=== PATIENT | female | born 1995 | race Caucasian/White ===

== ENCOUNTER 2017-11-27 13:41 | Inpatient (IN) ==
[2017-12-01] MEDS ORDERED: METHYLERGONOVINE 0.2 MG/ML INJECTION IM PRN (06:15)
[2017-12-01] MEDS ORDERED: OXYTOCIN DRIP 30 UNIT/500 ML ML IV PRN (06:15)
[2017-12-01] MEDS ORDERED: ACETAMINOPHEN 500 MG TABLET PO PRN ×2 (06:15→18:51)
[2017-12-01] MEDS ORDERED: LIDOCAINE 1% (10mg/ml) 2mL INJ PF SDV ID PRN (06:15)
[2017-12-01] MEDS ORDERED: CARBOPROST 250 MCG/ML INJECTION IM PRN (06:15)
[2017-12-01] MEDS ORDERED: CALCIUM CARBONATE Chewable 500mg TABLET PO PRN ×2 (06:15→18:51)
[2017-12-01] MEDS ORDERED: MAG-AL + SIM ORAL LIQUID 30ml PO PRN ×2 (06:15→18:51)
[2017-12-01] MEDS: LR 1,000 ML IV PRN ×2 (06:40→08:50)
[2017-12-01] MEDS: D5LR 1,000 ML IV PRN ×2 (06:49→16:05)
[2017-12-01 07:17] VITALS: BMI 32.8
[2017-12-01] MEDS ORDERED: DiphenhydrAMINE 50 MG/ML INJECTION IVP PRN (10:08)
[2017-12-01] MEDS ORDERED: NALOXONE 0.4 MG/ML INJECTION IVP PRN (10:08)
[2017-12-01] MEDS ORDERED: ROPIVACAINE 1% 10MG/ML INJ 200 MG, SUFentanil 50 MCG in NS 100 ML EPI PRN (10:08)
[2017-12-01] MEDS ORDERED: ONDANSETRON 4 MG/2 ML INJECTION IVP PRN (10:08)
--- NOTE | 2017-12-01 10:08 | Anesthesia Preoperative Report ---
Anesthesia Epidural/Spinal Rec - Date and Time Date: 12/01/17 Procedure: Labor Epidural Plan: Epidural - Vital Signs Vital Signs: Temperature 97.7 F 12/01/17 07:17 Pulse Rate 72 12/01/17 07:17 Respiratory Rate 16 12/01/17 07:17 Blood Pressure 122/70 12/01/17 07:17 Pulse Oximetry 99 12/01/17 07:17 /Para: P:0 - Medictaions & Allergies Inpatient Medications: Current Medications Acetaminophen (Tylenol) 500 - 1,000 mg PO Q4H PRN PRN Reason: Pain Al Hydroxide/Mg Hydroxide (Maalox Plus) 30 ml PO Q3H PRN PRN Reason: Indigestion Calcium Carbonate (Tums) 500 - 1,000 mg PO Q2H PRN PRN Reason: Indigestion Carboprost Tromethamine (Hemabate) 250 mcg IM O PRN PRN Reason: .Downtime Dextrose/Lactated Ringer's (Dextrose 5%-Lactated Ringers) 1,000 mls @ 125 mls/ hr IV .Q8H PRN PRN Reason: Labor Lactated Ringer's (Lactated Ringers) 1,000 mls @ 999 mls/hr IV .Q1H1M PRN Oxytocin (Pitocin Drip) 30 unit in 500 mls @ 2 mls/hr IV .Q24H PRN; Protocol PRN Reason: Induction/Augmentation Lidocaine HCl (Xylocaine-Mpf 1% Vial) 0.2 mg ID O PRN PRN Reason: IV Start Methylergonovine Maleate (Methergine) 0.2 mg IM O PRN Misoprostol (Cytotec) 800 mcg NC ONCE PRN Allergies/Adverse Reactions: Allergies Allergy/AdvReac Type Severity Reaction Status Date / Time No Known Allergies Allergy Verified 09/11/17 14:27 - Home Medications Home Medications: Home Medications Medication Instructions Recorded Confirmed Type Pnv No.95/Ferrous Fum/Folic AC 1 tab PO DAILY 07/05/17 11/16/17 History [ Tablet] Ferrous Sulfate [Iron] 325 mg PO DAILY 09/11/17 11/16/17 History - Medical History Other History: Reports: Now - Surgical History Reproductive Surgery/Treatment: DENIES: Section Anesthesia Reactions: None Hx Family Anesthesia Reaction: No History of Motion Sickness: No - Social History Smoking Status: Former smoker Substance Use Type: does not use Alcohol Intake Frequency: does not drink - Pertinent Findings Lab Data: CBC and BMP 12/01/17 06:42 EKG Rhythm: Normal Sinus Rhythm - Physical Exam Respiratory Exam: lungs clear Cardiovascular Exam: regular rate and rhythm - Airway Assessment Mallampati Score: II TMD: 3 Fingerbreadths Neck Extension: good Overall Assessment: may be difficult intubation - ASA ASA Score: 2 - Discussion Discussion: Discussed risks/options/alternatives of anesthesia and questions answered. Patient consents. Nursing pain assessment noted. Anesthesia Discussion: spouse Attestation Statement: Prior to the delivery of any anesthetic medication, I examined the patient, developed the plan, obtained the patient's consent and discussed the risk and benefits of the procedure with the patient/guardian.
[2017-12-01] MEDS ORDERED: HYDROCORTISONE 2.5% CREAM 30gm RECTALLY PRN (18:51)
[2017-12-01] MEDS ORDERED: HYDROCODONE/APAP 5mg/325mg TABLET PO PRN (18:51)
[2017-12-01] MEDS ORDERED: DiphenhydrAMINE 25 MG CAPSULE PO PRN (18:51)
[2017-12-01] MEDS: OXYTOCIN DRIP 30 UNIT/500 ML ML IV SCH (18:53)
--- NOTE | 2017-12-01 18:59 | Labor and Delivery Note ---
DATE OF DELIVERY: 12/01/2017 DIAGNOSES 1. 22-year-old white female G1, P0 at 40.4 weeks gestational age. 2. Pitocin induction of labor for postdates gestation. 3. Epidural anesthesia. 4. Artificial rupture of membranes. 5. Intrauterine pressure monitor. 6. Spontaneous vaginal delivery. 7. Nuchal cord x 1. 8. Male , Apgars, 3815 g (Onofre Ray), 8 pounds 7 ounces. 9. Second-degree perineal laceration - repaired. BRIEF DESCRIPTION: This is a postdates gestation who was induced today. Cervix was initially 1.5 cm. She got a block and artificial rupture of membranes by Dr. Sierra after that (since I was tied up in surgery). She was 2.5 cm at that time and stayed that way for the next several hours so I placed an IUPM and we titrated the Pitocin dose based on that. Maximum was 26 but we were able to turn it down based on IUPM information. Eventually she made it to complete dilation. We pushed for about an hour and a half with the rolling from OP to OA. Spontaneous vaginal delivery occurred. Infant was bulb suctioned after delivery of the head and then again after delivery of the body. Cord was doubly clamped and cut and the infant's father cut the cord. The cord was allowed to drain for about a minute and a half before cutting. There was a nuchal cord x 1 that was reduced. Examination of the perineum revealed shallow second-degree laceration that was repaired using 2-0 chromic. EBL was 300 mL. At the time of dictation mother and are doing well. [facility]
[2017-12-02] MEDS: IBUPROFEN 800 MG TABLET PO PRN ×2 (00:36→11:43)
[2017-12-02] MEDS: OXYTOCIN DRIP 30 UNIT/500 ML ML IV SCH (01:34)
[2017-12-02 02:29] VITALS: O2SAT 97
--- NOTE | 2017-12-02 08:22 | OB/GYN Progress Note ---
OB-PP Progress Note - General PPD1 - Subjective Date: 12/02/17 Lochia: Moderate Pain: controlled (using Ibuprofen for pain.) Voiding: voiding Nausea or Vomiting Present: No - Objective Vital Signs: Last Vital Signs Temp 97.9 F 12/02/17 06:00 Pulse 80 12/02/17 06:00 Resp 17 12/02/17 06:00 BP 116/25 12/02/17 06:00 Pulse Ox 97 12/02/17 02:15 Urine Output: good General: alert and oriented Abdomen: fundus firm Extremities: non-tender Edema: none Laboratory: Laboratory Results - last 24 hr 12/02/17 06:50 WBC 12.7 H D RBC 3.38 L Hgb 9.3 L D Hct 28.9 L D MCV 85.5 MCH 27.5 MCHC 32.2 RDW Std Deviation 46.9 Plt Count 116 L MPV 11.1 - Assessment Assessment: - Plan Plan: routine care (Considering dismissal.)
[2017-12-02] MEDS ORDERED: DOCUSATE CALCIUM 240 MG CAPSULE PO SCH (09:00)
--- NOTE | 2017-12-02 10:40 | OB/GYN Progress Note ---
OB-Progress Note Free Text - Date Date: 12/02/17 - Progress Note Progress Note: vss af doing ok hgb stable q&a-krb
[2017-12-02 14:24] VITALS: BP 127/68; PULSE 77; RESP 16; TEMP 98
== END 2017-12-02 20:25 | disposition home or self-care (01) | DRG 775 ==
LOC: MC 12-01 06:13
PROVIDERS: ADMIT Obstetrics & Gynecology; ATTEND Obstetrics & Gynecology

== ENCOUNTER 2017-12-10 19:02 | Observation (INO) ==
--- OUTSIDE RECORDS SUMMARY | 2017-12-10 19:28 | External Medical Summary | Continuity of Care Document ---
:1995 Author Organization [facility] Address [address] [place], [place] [address] Phone Care Team Providers Name Role Phone Filiberto Mackey MD Unavailable Unavailable Allergies, Adverse Reactions, Alerts Substance Reaction Severity Status No Known Drug Allergies Unknown Active Medications Medication Instructions Dosage Effective Dates Status Comments (start - stop) ferrous sulfate 325 take 1 tablet by ORAL 325 MG - Active mg (65 mg iron) route every day tablet + DHA 28 mg - Active iron-975 mcg-200 mg oral pack Problems Condition Effective Dates (start - stop) Clinical Status Encntr for suprvsn of normal first - preg, first trimester 13 weeks gestation of - Oth infect w sexl mode of transmiss - comp preg, second tri Encntr for suprvsn of normal first - preg, second trimester 20 weeks gestation of - Encntr for suprvsn of normal first - preg, first trimester 13 weeks gestation of - Encntr for suprvsn of normal first - preg, first trimester 13 weeks gestation of - Encntr for suprvsn of normal first - preg, second trimester 24 weeks gestation of - Encntr for suprvsn of normal first - preg, second trimester 20 weeks gestation of - Encntr for suprvsn of normal first - preg, second trimester 17 weeks gestation of - Encntr for suprvsn of normal first - preg, third trimester 30 weeks gestation of - Encntr for suprvsn of normal first - preg, third trimester 28 weeks gestation of - Procedures Procedure Date Unknown Results Test Name Date and Time Measure Units Reference Range Abnormal Flag Comments Panel Description: Gestational Glucose Tolerance Glucose - Fasting 08:33:00 70 mg/dL 65-94 Glucose - 1 hour 08:33:00 178 mg/dL 65-179 Glucose - 2 hour 08:33:00 146 mg/dL 65-154 Glucose - 3 hour 08:33:00 73 mg/dL 65-139 Note: 08:33:00 Comment For diagnosis of gestational diabetes, at least two values must meetor exceed normal limits, which is based on 100 gm of oral glucosechallenge. Advance Directives Directive Yes / No Effective Date File Name Unknown Encounters Encounter Practice Location Reason(s) Diagnoses Date Provider Care Team Description For Visit Members Purnima [place] Encntr for Sep- Raphael Referring In [facility] [place]. 700 Provider: [employer] [place] [address], first preg, [place], third [address] [address], 700 [id number], [email or web address] [facility] tel:[phone] gestation [id number], [address] [address], [address] of [place]. [place], tel:[phone] [place], [id number]. tel:[phone] Purnima [place] Sep- Raphael In Womens [place]. 700 [facility] [address], [place] Arina [place], [place] [address], [id number], [facility], tel:[phone], [id number] [place]. tel:[phone] Purnima [place] Encntr for Raphael [facility] [place]. 700 Provider: [employer] [place] [address], first preg, Center Raphael [place], third [address], 700 [id number], [email or web address] [facility] tel:[phone] gestation [id number], [place] [address], [address] of [place]. [place], tel:+-[phone] [place], [phone] [id number]. tel:[phone] Associates Daniele Encntr for Raphael Referring In [facility] [place]. 700 Provider: Health [place], [facility] [address], first preg, Center Raphael [place], second [address], 700 [id number], [email or web address] [place], Medical [place] weeks [place], [place] tel:[phone] gestation [id number], [address] [address], [address] of [place]. [place], tel:+-[phone] [place], [phone] [id number]. tel:[phone] Purnima [place] Oth infect Raphael Referring In Womens w sexl mode [place]. 700 Provider: Pearl STEVENSON [facility] [address], [facility] Center Raphael [place], comp preg, [place] [address], 700 [id number], [facility] [place] triEncntr [place], [place] tel:[phone] for suprvsn [phone], [place] [address], [address] of normal [place]. [place], first preg, tel:[phone] [place], second [phone] [id number]. [email or web address] tel:[phone] weeks [phone] gestation of Associates Daniele Encntr for Raphael Referring In [facility] [place]. 700 Provider: Pearl STEVENSON, [facility] [place] [address], first preg, Center Raphael [place], second [address], 700 [id number], [email or web address] [place], Medical [place] weeks [place], Center tel:[phone] gestation [phone], [address] [address], [address] of [place]. [place], tel:[phone] [place], [phone] [id number]. tel:[phone] Purnima [place] Raphael In Womens -2018 [place]. 700 Pearl STEVENSON, Medical [address], Center Arina Phillips [place], [address], [id number], [place], [place], tel:[phone], [id number] [place]. tel:[phone] Purnima [place] Encntr for Jun-18 Raphael Referring In [facility] [place]. 700 Provider: babar Nguyen [facility] [address], first preg, Center [place], second [address], 700 [id number], [email or web address] [place], Medical [place] weeks [place], [place] tel:+ gestation [phone], [place] [address], [address] of [place]. [place], tel:[phone] [place], [phone] [id number]. tel:[phone] Purnima [place] Encntr for May-20 Raphael Referring In [facility] [place]. 700 Provider: babar Nguyen [facility] [address], first [facility], Center [place], first [address], 700 [id number], [email or web address] [place], Medical [place] weeks [place], [place] tel:+ gestation [phone], [address] [address], [address] of [place]. [place], tel:+-[phone] [place], [phone] [id number]. tel:[phone] Purnima [place] Encntr for May-20 [place] Ref[facility] [place]. Provider: babar Nguyen 700 [place] [address], first [facility], [facility] [place], first Center Roly Phillips , [email or web address] [address], Medical [place] weeks Daniele [place] tel: gestation [place], [address] [address], [address] of [id number], [place], [place]. [place], tel:[phone]. [id number] tel:[phone] Purnima [place] Encntr for May-19 Raphael Referring In [facility] [place]. 700 Provider: babar Nguyen [facility] [address], first preg, Center [place], first [address], 700 [id number], [email or web address] [place], Medical [place] weeks [place], [place] tel:+ gestation [phone], [address] [address], [address] of [place]. [place], tel:+-120 [place], [phone] [id number]. tel:[phone] Family History Family Member Diagnosis Age At Onset Maternal Grandmother Uterine Cancer Maternal Grandmother Stroke Immunizations Vaccine Date Status Comments Influenza, injectable, quadrivalent, completed Source: Other Provider preservative free, 3 yrs or older Payers Payer name Insurance type Covered democrat ID Authorization(s) [facility] - [id number] Medicaid Social History Type Description Quantity Date Captured Unknown Vital Signs Date / Height Weight BMI Pulse Blood Temperature Respiratory Body Head BMI Time: Rate Pressure Rate Surface Circumference percentile Area Unknown Chief Complaint And Reason For Visit Unknown Chief Complaint And Reason For Visit Reason For Referral Reason For Referral Unknown Plan Of Care Date Type Action Status Appointment Ana Donnelly BOOKED Future Order: Radiology Order Nuchal Translucency ([id number]) Ordered Future Order: Radiology Order Complete OB Ultrasound > 14 Ordered Weeks ([id number]) Date Type Problem Goal Intervention Status Start Date Unknown. History Of Present Illness Encounter Date Complaint History Of Present Illness This patient has no known history of present illness Functional Status Encounter Date Functional Assessment Cognitive Assessment Unknown Medications Administered Medication Instructions Dosage Effective Dates (start - stop) Status Comments Drug Treatment Unknown Instructions Date Instruction Additional Information Unknown
--- OUTSIDE RECORDS SUMMARY | 2017-12-10 19:28 | External Medical Summary | Continuity of Care Document ---
:1995 Author Organization [facility] Address [address] [place], [place] [address] Phone Care Team Providers Name Role Phone Filiberto Mackey MD Unavailable Unavailable Allergies, Adverse Reactions, Alerts Substance Reaction Severity Status No Known Drug Allergies Unknown Active Medications Medication Instructions Dosage Effective Dates (start - Status Comments stop) + DHA 28 mg - Active iron-975 [...] second trimester 17 weeks gestation of - Procedures Procedure Date OB Visit No Charge Results Test Name Date and Time Measure Units Reference Range Abnormal Flag Comments Unknown Advance Directives Directive Yes / No Effective Date File Name Unknown Encounters Encounter Practice Location Reason(s) Diagnoses Date Provider Care Team Description For Visit Members Purnima [place] Encntr for Raphael Referring In [facility] [place]. 700 Provider: Pearl STEVENSON [facility] [address], first preg, Center [place], second [address], 700 [id number], [email or web address] Daniele [facility] US weeks [place], [place] tel:[phone] gestation [id number], [address] [address], [address] of [place]. [place], tel:[phone] [place], [phone] [id number]. tel:[phone] Purnima [place] Oth infect Raphael [facility] In [facility] [place]. 700 Provider: Pearl STEVENSON [facility] [address], [facility] Rap[place], comp preg, [address], 700 [id number], [facility] [place], [place] tel:[phone] for suprvsn [id number], [address] [address], [address] of normal [place]. [place], first preg, tel:[phone] [place], second [phone] [id number]. [email or web address] tel:[phone] weeks [phone] gestation of Associates Daniele Hortonntr for Raphael Ref[facility] [place]. 700 Provider: Pearl STEVENSON [facility] [address], first preg, Center Raphael [place], second [address], 700 [id number], [email or web address] Daniele [facility] US weeks [place], [place] tel:[phone] gestation [id number], [address] [address], [address] of [place]. [place], tel:[phone] [place], [phone] [id number]. tel:[phone] Purnima [place] Raphael In Women [place]. 700 Pearl STEVENSON Medical [address], Center Arina [place], [address], [id number], [place], [place], tel:[phone], [id number] [place]. tel:[phone] Purnima [place] Encntr for Raphael [facility] In [facility] [place]. 700 Provider: Pearl STEVENSON normal [facility] [address], first [facility], Center Raphael [place], second [address], 700 [id number], [email or web address] [place], Medical [place] weeks [place], [place] tel:+ gestation [phone], [address] [address], [address] of [place]. [place], tel:+-316 [place], [phone] [id number]. tel:[phone] Purnima [place] Encntr for May- Raphael Referring In Womens [facility] [place]. 700 Provider: Pearl STEVENSON normal [facility] [address], first preg, Center [place], first [address], 700 [id number], [email or web address] [facility] US weeks [place], [place] tel:+ gestation [phone], [address] [address], [address] of [place]. [place], tel:+-316 [place], [phone] [id number]. tel:[phone] Purnima [place] Encntr for May- Persaud Referring In [facility]ens [facility] [place]. Provider: babar Nguyen 700 [place] [address], first [facility], Arina eLyva [place], first [address] , [place] [address], Medical [place] [facility] tel:+ gestation [place], [address] [address], [address] of [id number], [place], [place]. [place], tel:[phone]. [id number] tel:[phone] Purnima [place] Encntr for May-19 Raphael Referring In Womens [facility] [place]. 700 Provider: Pearl STEVENSON normal Medical [place] [address], first preg, Center Rap[place], first [address], 700 [id number], [email or web address] [place], [facility] US weeks [facility] tel:[phone] gestation [id number], [place] [address], [address] of [place]. [place], tel:+-316 [place], [phone] [id number]. tel:[phone] Family History Family Member Diagnosis Age At Onset Maternal Grandmother Uterine Cancer Maternal Grandmother Stroke Immunizations Vaccine Date Status Comments Influenza, injectable, quadrivalent, completed Source: Other Provider preservative free, 3 yrs or older Payers Payer name Insurance type Covered alliance party ID Authorization(s) [facility] - [id number] Medicaid Social History Type Description Quantity Date Captured Alcohol Use Details No Caffeine Use Details Unknown Tobacco Use Status Unknown Smoking Status Never smoker Vital Signs Date / Height Weight BMI Pulse Blood Temperature Respiratory Body Head BMI Time: Rate Pressure Rate Surface Circumference percentile Area 154.00 25.4 108/ lbs 7 mm[Hg] 9:47 kg/m AM eter (2) Chief Complaint And Reason For Visit Unknown Chief Complaint And Reason For Visit Reason For Referral Reason For Referral Unknown Plan Of Care Date Type Action Status Appointment Ana Donnelly BOOKED Future Order: Radiology Order Nuchal Translucency ([id number]) Ordered Future Order: Radiology Order Complete OB Ultrasound > 14 Ordered Weeks ([id number]) Date Type Problem Goal Intervention Status Start [...]
--- OUTSIDE RECORDS SUMMARY | 2017-12-10 19:28 | External Medical Summary | Continuity of Care Document ---
:1995 Author Organization [facility] Address [address] [place], [place] [address] Phone Care Team Providers Name Role Phone [...] of normal first - preg, third trimester 37 weeks gestation of - Active Procedures Procedure Date OB Visit No Charge Results Test Name Date and Time Measure Units Reference Range Abnormal Flag Comments Unknown Advance Directives Directive Yes / No Effective Date File Name Unknown Encounters Encounter Practice Location Reason(s) Diagnoses Date Provider Care Team Description For Visit Members Associates Liam [place] Encntr for Raphael [facility] suprvsn of [place]. 700 Provider: LADONNA STEVENSON Medical [place] [address], first [facility], Center Rap[place], third [address], 700 Medical [id number], [place] [email or web address] [place] [address] tel:[phone] weeks [place], [place] [address], 67[address] gestation [id number], [place], of [place]. [id number]. tel: tel: [phone] Associates Liam [place] Raphael [facility] -2017 [place]. 700 Provider: [place], [facility] [address], Center Raphael [place], [address], 700 Medical [id number], [place] Daniele [place] tel:[phone] [place], [address] [address], 6790 [id number], [place], [place]. [id number]. tel: tel: [phone] Associates In [place] [address] [place]. 700 [place] [facility] [address], [place] Ar[place], [address] [address], [id number], [place], tel:[phone] [place], 6790 [id number], [place]. tel:[phone] Associates In [place] [address] [place]. 700 [place] [facility] [address], [place] Arnia [place], [address] [address], [id number], [place] Dan[place], tel:[phone] [place], 67[id number], [place]. tel:[phone] Associates In Daniele [facility] [place]. 700 Provider: [place] [facility] [address], [place]hael [place], [address], 700 Medical [id number], [place] Daniele [place] tel:[phone] [place], [address] [address], 67[address] [id number], [place], [place]. [id number]. tel: tel: [phone] Family History Family Member Diagnosis Age At Onset Maternal Grandmother Uterine Cancer Maternal Grandmother Stroke Immunizations Vaccine Date Status Comments Tdap completed Source: New Immunization Record Influenza, injectable, completed Source: Other Provider quadrivalent, preservative free, 3 yrs or older Payers Payer name Insurance type Covered green party ID Authorization(s) [facility] - [id number] Medicaid [facility] [id number] Medicaid Social History Type Description Quantity Date Captured Alcohol Use Details No Caffeine Use Details Unknown Tobacco Use Status Unknown Smoking Status Never smoker Vital Signs Date / Height Weight BMI Pulse Blood Temperature Respiratory Body Head BMI Time: Rate Pressure Rate Surface Circumference percentile Area 177.70 29.3 131/80 -2018 lbs 9 mm[Hg] 11:09 kg/m AM eter (2) Chief Complaint And Reason For Visit Unknown Chief Complaint And Reason For Visit Reason For Referral Reason For Referral Unknown Plan Of Care Date Type Action Status Unknown. Date Type Problem Goal Intervention Status Start [...]
--- OUTSIDE RECORDS SUMMARY | 2017-12-10 19:28 | External Medical Summary | Continuity of Care Document ---
:1995 Author Organization [facility] Address [address] [place], [place] [id number] Phone Care Team Providers Name Role Phone [...] third trimester 28 weeks gestation of - Encntr for suprvsn of normal first - preg, third trimester 33 weeks gestation of - Encntr for suprvsn of normal first - preg, third trimester 32 weeks gestation of - Procedures Procedure Date OB Visit No Charge Results Test Name Date and Time Measure Units Reference Range Abnormal Flag Comments Unknown Advance Directives Directive Yes / No Effective Date File Name Unknown Encounters Encounter Practice Location Reason(s) Diagnoses Date Provider Care Team Description For Visit Members Purnima [place] [facility]cntr [facility]hael [facility] [place] 700 Provider: babar Nguyen Medical [place] [address], first preg, [place], third [place], 700 [id number], [email or web address] [facility] tel:[phone] gestation [id number], [place], [address] of . [place], tel:[phone] [place], [phone] [id number]. tel:[phone] Purnima [place] Encntr for Raphael [facility] [place]. 700 Provider: babar Nguyen [facility] [place] [address], first [facility], [place], third [place], 700 [id number], [email or web address] [facility] tel:[phone] gestation [id number], [place], [address] of [place]. [place], tel:[phone] [place], [phone] [id number]. tel:[phone] Purnima [place] Encntr for Raphael [facility] [place]. 700 Provider: Pearl STEVENSON normal Medical [place] [address], first preg, Center [place], third [place], 700 [id number], [email or web address] [facility] tel:[phone] gestation [id number], [place], [address] of [place]. [place], tel:+-316 [place], [phone] [id number]. tel:[phone] Purnima [place] Raphael In Womens -2017 [place]. 700 Health [facility] Medical [address], Center Arina [place], [place], [id number], [place], tel:[phone], [address] [place]. tel:[phone] Purnima [place] Encntr for Raphael Referring In Womens suprvsn [place]. 700 Provider: [facility], [facility] [address], first preg, Center [place], third [place], 700 [id number], [email or web address] [facility] [place], [place] tel:[phone] gestation [id number], [place], [address] of [place]. [place], tel:[phone] [place], [phone] [id number]. tel:[phone] Purnima [place] Encntr for Raphael Referring In Womens suprn [place]. 700 Provider: [facility], [facility] [address], first preg, Center [place], second [place], 700 [id number], [email or web address] [facility] weeks [place], [place] tel:[phone] gestation [id number], [place], [address] of [place]. [place], tel:[phone] [place], [phone] [id number]. tel:[phone] Purnima [place] Oth infect Raphael Referring In Womens w sexl mode [place]. 700 Provider: [facility], [facility] [address], [facility] Center [place], comp preg, [place], 700 [id number], second [facility] triEncntr [place], [place] tel:[phone] for suprvsn [id number], [place], [address] of normal [place]. [place], first preg, tel:[phone] [place], second [phone] [id number]. [email or web address] tel:[phone] weeks [phone] gestation of Associates Daniele Encntr for Raphael Referring In Womens Ultrasound suprvsn [place]. 700 Provider: Pearl STEVENSON normal Medical [place] [address], first preg, Center [place], second [place], 700 [id number], [email or web address] Daniele, [facility] US weeks [place], [place] tel:[phone] gestation [id number], [place], [address] of [place]. [place], tel:[phone] [place], [phone] [id number]. tel:[phone] Purnima [place] Jun- Raphael In Womens -2017 [place]. 700 Pearl STEVENSON Medical [address], Center [place], [place], [id number], [place], [facility], tel:[phone], [address] [place]. tel:[phone] Purnima [place] Encntr for Raphael Referring In Womens suprvsn [place]. 700 Provider: babar Nguyen Medical [place] [address], first preg, Center [place], second [place], 700 [id number], [email or web address] [place], [facility] US weeks [place], [place] tel:[phone] gestation [id number], [place], [address] of [place]. [place], tel:+-316 [place], [phone] [id number]. tel:[phone] Purnima [place] Encntr for May- Raphael Referring In Womens suprvsn [place]. 700 Provider: babar Nguyen Medical [place] [address], first preg, Center [place], first [place], 700 [id number], [email or web address] [place], Medical [place] weeks [place], [place] tel:[phone] gestation [id number], [place], [address] of [place]. [place], tel:+-316 [place], [phone] [id number]. tel:[phone] Associates Daniele Encntr for May-20 [place] Referring In Womens Ultrasound suprvsn of [place]. Provider: babar Nguyen 700 [place] [address], first preg, [place], first Center , 700 [id number], [email or web address] [place], Medical [place] weeks [place], [place] tel:+21 gestation [place], [place], [address] of [id number], [place], [place]. [place], tel:[phone]. [id number] tel:[phone] Associates Daniele Encntr for Raphael Referring In Womens suprvsn [place]. 700 Provider: [facility] [place] [address], first [facility], Center [place], [place], first [place], 700 [id number], [place], Medical [place] weeks [place], [place] tel:+21 gestation [id number], [place], [address] of [place]. [place], tel:+316 [place], [id number]. tel:[phone] Family History Family Member Diagnosis Age At Onset Maternal Grandmother Uterine Cancer Maternal Grandmother Stroke Immunizations Vaccine Date Status Comments Influenza, injectable, quadrivalent, completed Source: Other Provider preservative free, 3 yrs or older Payers Payer name Insurance type Covered democrat ID Authorization(s) [facility] - [id number] Medicaid Social History Type Description Quantity Date Captured Alcohol Use Details No Caffeine Use Details Unknown Tobacco Use Status Unknown Smoking Status Never smoker Vital Signs Date / Height Weight BMI Pulse Blood Temperature Respiratory Body Head BMI Time: Rate Pressure Rate Surface Circumference percentile Area 163.60 27.0 127/74 -2018 lbs 5 mm[Hg] 8:37 kg/m AM eter (2) Chief Complaint And Reason For Visit Unknown Chief Complaint And Reason For Visit Reason For Referral Reason For Referral Unknown Plan Of Care Date Type Action Status Appointment Aan Donnelly BOOKED Future Order: Radiology Order Nuchal Translucency ([id number]) Ordered Future Order: Radiology Order Complete OB Ultrasound > 14 Ordered Weeks ([id number]) Date Type Problem Goal Intervention Status Start [...]
--- OUTSIDE RECORDS SUMMARY | 2017-12-10 19:28 | External Medical Summary | Continuity of Care Document ---
:1996 Author Organization [facility] Address [address] [place], [place] [id number] Phone Care Team Providers Name Role Phone [...] of normal first - preg, third trimester 38 weeks gestation of - Active Procedures Procedure Date OB Visit No Charge Results Test Name Date and Time Measure Units Reference Range Abnormal Flag Comments Unknown Advance Directives Directive Yes / No Effective Date File Name Unknown Encounters Encounter Practice Location Reason(s) Diagnoses Date Provider Care Team Description For Visit Members Associates Liam [place] Encntr for Raphael [facility] suprvsn of [place]. 700 Provider: LADONNA STEVENSON Medical [place] [address], first [facility], Center [place], third [place], 700 Medical [id number], [place] [email or web address] [place] [address] tel:[phone] weeks [place], [place], 6790 gestation [id number], [place], of [place]. [id number]. tel: tel: [phone] Associates Liam [place] Raphael [facility] -2017 [place]. 700 Provider: [place], [facility] 1522, Center [place], [place], 700 Medical [id number], [place] Dan[place] tel:[phone] [place], [place], 6790 [id number], [place], [place]. [id number]. tel: tel: [phone] Associates In [place] [address] [place]. 700 [place] [facility] 1522, [place] Arina [place], [place], [id number], [place], tel:[phone] [place], 6790 [id number], [place]. tel:[phone] [facility] [place] [address] [place]. 700 [place] [facility] 1522, [place] Arina [place], [place], [id number], [place] Daniele, tel:[phone] [place], 6790 [id number], [place]. tel:[phone] Associates [facility] Dan[place] [facility]2016 [place]. 700 Provider: [place] [id number], [place], [place], 700 Medical [id number], [place] Dan[place] tel:[phone] [place], [place], 6790 [id number], [place], [place]. [id number]. tel: tel: [phone] Family History Family Member Diagnosis Age At Onset Maternal Grandmother Uterine Cancer Maternal Grandmother Stroke Immunizations Vaccine Date Status Comments Tdap completed Source: New Immunization Record Influenza, injectable, completed Source: Other Provider quadrivalent, preservative free, 3 yrs or older Payers Payer name Insurance type Covered alliance party ID Authorization(s) [facility] - [id number] Medicaid [facility] [id number] Medicaid Social History Type Description Quantity Date Captured Alcohol Use Details No Caffeine Use Details Unknown Tobacco Use Status Unknown Smoking Status Never smoker Vital Signs Date / Height Weight BMI Pulse Blood Temperature Respiratory Body Head BMI Time: Rate Pressure Rate Surface Circumference percentile Area 177.40 29.3 79 lbs 4 mm[Hg] 8:41 kg/m AM francoiser (2) Chief Complaint And Reason For Visit Unknown Chief Complaint And Reason For Visit Reason For Referral Reason For Referral Unknown Plan Of Care Date Type Action Status Appointment Ana Dan BOOKED Date Type Problem Goal Intervention Status Start [...]
--- OUTSIDE RECORDS SUMMARY | 2017-12-10 19:28 | External Medical Summary | Continuity of Care Document ---
:1995 Author Organization [facility] Address [address] [place], [place] [phone] Phone Care Team Providers Name Role Phone [...] first trimester 13 weeks gestation of - Uterine size-date discrepancy, third - trimester Abnormal hematolog finding on - screening of mother 36 weeks gestation of - Uterine size-date discrepancy, third - trimester 34 weeks gestation of - Oth infect w [...] third trimester 37 weeks gestation of - Encntr for suprvsn of normal first - preg, third trimester 30 weeks gestation of - Encntr for suprvsn of normal first - preg, third trimester 28 weeks gestation of - Encntr for suprvsn of normal first - preg, third trimester Encounter For Screening For - Streptococcus B 36 weeks gestation of - Encntr for suprvsn of normal first - preg, third trimester 33 weeks gestation of - Encntr for suprvsn of normal first - preg, third trimester 32 weeks gestation of - Encntr for suprvsn of normal first - preg, third trimester 38 weeks gestation of - Procedures Procedure Date Unknown Results Test Name Date and Time Measure Units Reference Range Abnormal Flag Comments Unknown Advance Directives Directive Yes / No Effective Date File Name Unknown Encounters Encounter Practice Location Reason(s) Diagnoses Date Provider Care Team Description For Visit Members Purnima [place] Encntr for Cristo-1 Raphael Referring In Womens suprvsn of normal 4-201 [place]. 700 Provider: Health [place], first preg, third 8 Medical [place] PO Box weeks [place] Raphael R, 1522, gestation of [place] 700 [place], 120, [facility] [id number], [place], [facility] 120, [id number] Daniele, tel: , [place]. [place], [id number] tel: [phone]. [id number] tel:[phone] Purnima [place] Encntr for Cristo-0 Raphael Referring In Womens suprvsn of normal 7-201 [place]. 700 Provider: Health [place], first preg, third 8 Medical [place] [address] [email or web address] weeks Center Raphael R, 1522, gestation of [place], 120, Medical Daniele [facility] [place] [id number], [place], [place], [place] [id number] Daniele, tel:+ , [place]. [place], tel: [phone]. [id number] tel:[phone] Purnima [place] Encntr for October-3 Raphael Referring In Womens suprvsn of normal - [place]. 700 Provider: Health [place], first preg, third 8 Medical [facility] Box trimesterEncounte Center Raphael R, 1522, r For [place], Screening For 120, Medical [place], Streptococcus B36 Daniele [place] [id number], weeks gestation [place], [place], [place] of [id number] Daniele, tel:+ , [place]. [place], tel: [phone]. [id number] tel:[phone] Purnima [place] Uterine size-date October-3 Raphael Referring In Womens Ultrasound discrepancy, [place]. 700 Provider: Health [place], third 8 Medical [facility] Box trimesterAbnormal Center Raphael R, 1522, hematolog finding [place], on 120, Medical [place], screening of Daniele [place] [id number], [email or web address] weeks [place], [place], [place] gestation of [id number] Daniele, tel:+ , [place]. [place], tel: [phone]. [id number] tel:[phone] Purnima [place] May-2 Raphael In Womens - [place]. 700 Health [place], 8 Medical PO Box Center [address]22, [place], 120, [place], Daniele, [id number], [place], [place] [id number] tel: , [place]. tel: [phone] Purnima [place] Uterine size-date October-1 Raphael Referring In Womens discrepancy, [place]. 700 Provider: Pearl STEVENSON, third [email or web address] 8 Medical [facility] Box weeks gestation Center Raphael R, 1522, of [place], 120, Medical Daniele [facility] [place] [id number], [place], [facility] 120, [place] [id number] Daniele, tel: , [place]. [place], tel: [phone]. [id number] tel:[phone] Purnima [place] Encntr for May-0 Raphael Referring In Womens suprvsn of normal 7-201 [place]. 700 Provider: Health [place], first preg, third 8 Medical [place] [address] [email or web address] weeks Center Raphael Patel, 1522, gestation of [place], 120, Medical [facility]iele [facility] [id number], [place], [facility] 120, [place] [id number] Dan[place], tel: , [place]. [place], tel: [phone]. [id number] tel:[phone] Purnima [place] Encntr for May-0 Raphael Referring In Womens suprvsn of normal 3-201 [place]. 700 Provider: Health [place], first preg, third 8 Medical [place] [address] [email or web address] weeks Center Raphael Patel, 1522, gestation of [place], 120, Medical [facility]iele [facility] [id number], [place], [facility] 120, [place] [id number] Daniele, tel: , [place]. [place], tel: [phone]. [id number] tel:[phone] Purnima [place] Encntr for Apr-1 Raphael Referring In Womens suprvsn of normal 9-201 [place]. 700 Provider: Health [place], first preg, third 8 Medical [place] PO Box weeks Center Raphael Patel, 1522, gestation of [place], 120, Medical Daniele [facility] [id number], [place], [facility] 120, [place] [id number] Daniele, tel: , [place]. [place], tel: [phone]. [id number] tel:[phone] Purnima [place] Apr-0 Raphael In Womens 6-201 [place]. 700 Health [place], 8 Medical PO Box Center 1522, [place], 120, Daniele [facility] [id number], [place], [place] [id number] tel: , [place]. tel: [phone] Purnima [place] Encntr for Apr-0 Raphael Referring In Womens suprvsn of normal 5-201 [place]. 700 Provider: Pearl STEVENSON, first preg, third 8 Medical [place] [address] [email or web address] weeks Center Raphael R, 1522, gestation of [place], 120, Medical Daniele [facility] [id number], [place], [place], [place] [id number] Daniele, tel: , [place]. [place], tel: [phone]. [id number] tel:[phone] Purnima [place] Encntr for Mar-0 Raphael Referring In Womens suprvsn of normal 8-201 [place]. 700 Provider: Pearl STEVENSON, first preg, 8 Medical [place] PO Box second Center Raphael R, 1522, [email or web address] weeks [place], gestation of 120, Medical [place], [facility] [id number], [place], [place] 120, [place] [id number] Daniele, tel: , [place]. [place], tel: [phone]. [id number] tel:[phone] Purnima [place] Oth infect w sexl Feb-0 Raphael Referring In Womens mode of transmiss 8-201 [place]. 700 Provider: Pearl STEVENSON, comp preg, second 8 Medical [place] PO Box triEncntr for Center Raphael R, 1522, suprvsn of normal [place], first preg, 120, Medical [place], second [facility] [id number], [email or web address] weeks [place], [place], [place] gestation of [id number] Daniele, tel: , [place]. [place], tel: [phone]. [id number] tel:[phone] Purnima [place] Encntr for Feb-0 Raphael Referring In Womens Ultrasound suprvsn of normal 8-201 [place]. 700 Provider: Pearl STEVENSON, first preg, 8 Medical [place] PO Box second Center Raphael R, 1522, weeks [place], gestation of 120, Medical [place], [place], [place] [id number], [place], [place] 120, [place] [id number] Daniele, tel: , [place]. [place], tel: [phone]. [id number] tel:[phone] Purnima [place] Darrius-2 Raphael In Womens 4-201 [place]. 700 Health [place], 8 Medical PO Box Center 1522, [place], 120, [place], Daniele, [id number], [place], [place] [id number] tel: , [place]. tel: [phone] Purnima Hortonntr for Darrius-1 Raphael Referring In Womens suprvsn of normal 8-201 [place]. 700 Provider: Health [place], first preg, 8 Medical [place] PO Box second Center Raphael R, 1522, [email or web address] weeks [place], gestation of 120, Medical [place], [place], [place] , [place], [facility] 120, [place] [id number] Daniele, tel: , [place]. [place], tel: [phone]. [id number] tel:[phone] Purnima Hortonntr for Dec-2 Raphael Referring In Womens suprvsn of normal 0-201 [place]. 700 Provider: Health [place], first preg, first 7 Medical [place] PO Box [email or web address] weeks Center Raphael R, 1522, gestation of [place], 120, Medical [place], [place], [place] [id number], [place], [facility] 120, [place] [id number] Daniele, tel: , [place]. [place], tel: [phone]. [id number] tel:[phone] Purnima [place] Encntr for Dec-2 [place]aud Referring In Womens Ultrasound suprvsn of normal 0-201 [place]. Provider: Health [place], first preg, first [address] [place] [address] [address] [email or web address] weeks Medical Raphael R, 1522, gestation of Center [place], , [facility], 120, Center [id number], Daniele, [facility] 120, [place] Daniele [facility], tel: [phone] [place], , [place]. [id number]. tel: tel: [phone] Purnima Hortonntfiliberto for Dec-1 Raphael Referring In Womens suprvsn of normal 9-201 [place]. Roly Provider: Health [place], first preg, first 7 Medical [place] [address] [email or web address] weeks Center Raphael R, 1522, gestation of [place] 700 [place], 120, Medical [place], [facility] [id number], [place], [facility] 120, [place] [id number] Daniele, tel: , [place]. [place], [id number] tel: [phone]. [id number] tel:[phone] Family History Family Member Diagnosis Age At Onset Maternal Grandmother Uterine Cancer Maternal Grandmother Stroke Immunizations Vaccine Date Status Comments Tdap completed Source: New Immunization Record Influenza, injectable, completed Source: Other Provider quadrivalent, preservative free, 3 yrs or older Payers Payer name Insurance type Covered green party ID Authorization(s) [facility] - [id number] Medicaid [employer] [place] [id number] Medicaid Social History Type Description Quantity Date Captured Unknown Vital Signs Date / Height Weight BMI Pulse Blood Temperature Respiratory Body Head BMI Time: Rate Pressure Rate Surface Circumference percentile Area Unknown Chief Complaint And Reason For Visit Unknown Chief Complaint And Reason For Visit Reason For Referral Reason For Referral Unknown Plan Of Care Date Type Action Status Appointment Ana Dan BOOKED Future Order: Radiology Order Ultrasound OB Follow-up ([id number]) Ordered Future Order: Radiology Order Nuchal Translucency ([id number]) Ordered Future Order: Radiology Order Complete OB Ultrasound > 14 Ordered Weeks ([id number]) Date Type Problem Goal Intervention Status Start [...]
--- OUTSIDE RECORDS SUMMARY | 2017-12-10 19:28 | External Medical Summary | Continuity of Care Document ---
:[address] [facility] Address [address] [place], [place] [id number] Phone Care Team Providers Name Role Phone [...] Care Team Description For Visit Members Purnima Banda infect Raphael Referring In Womens w sexl mode -2017 [place]. 700 Provider: Health [place], Medical [place] [address], [facility] Center Raphael [place], [place], comp preg, [place], 700 [id number], [facility] [place], [place] tel:[phone] for suprvsn [id number], [place], [address] of normal [place]. [place], first preg, tel:[phone] [place], second [phone] [id number]. [email or web address] tel:[phone] weeks [phone] gestation of Associates Daniele Encntr for Raphael Referring In W[facility]ens [facility] [place]. 700 Provider: Pearl STEVENSON, normal Medical [place] [address], first preg, Center Rap[place], second [place], 700 [id number], [email or web address] [facility] [place], [place] tel:[phone] gestation [id number], [place], [address] of [place]. [place], tel:[phone] [place], [id number]. tel:[phone] Purnima [place] Jun-30 Raphael In Womens -2017 [place]. 700 Health [place], Medical [address], Center Arina [place], [place], [id number], [facility] [place], tel:[phone], [address] [place]. tel:[phone] Purnima [place] Jun- Raphael In Womens -2017 [place]. 700 Health [place], Medical [address], Center Arina [place], [place], [id number], [facility] [place], tel:[phone], [id number] [place]. tel:[phone] Purnima [place] Encntr for Jun- Raphael Referring In Womens [facility] [place]. 700 Provider: Pearl STEVENSON, normal Medical [place] [address], first preg, Center Rap[place], second [place], 700 [id number], [email or web address] [facility] weeks [place], [place] tel:[phone] gestation [id number], [place], [address] of [place]. [place], tel:[phone] [place], [id number]. tel:[phone] Purnima [place] Encntr for Dec-20 Raphael Referring In Womens [facility] [place]. 700 Provider: babar Nguyen [facility] [address], first preg, [place], first [place], 700 [id number], [email or web address] [place], Medical [place] weeks [place], [place] tel:[phone] gestation [id number], [place], [address] of [place]. [place], tel:[phone] [place], [phone] [id number]. tel:[phone] Purnima [place] Encntr for Dec-20 [place]aud Referring In Womens Ultrasound [facility] [place]. Provider: babar Nguyen 700 [place] [address], first preg, [facility] [place], first Center , 700 [id number], [place], Medical [place] weeks [facility] tel:[phone] gestation [place], [place], [address] of [id number], [place], [place]. [place], tel:[phone]. [id number] tel:[phone] Purnima [place] Encntr for May-19 Raphael Referring In Womens [facility] [place]. 700 Provider: babar Nguyen [facility] [address], first preg, Center [place], first [place] [address], 700 [id number], [email or web address] [place], Medical [place] weeks [place], [place] tel:[phone] gestation [id number], [place], [address] of [place]. [place], tel:[phone] [place], [phone] [id number]. tel:[phone] Family History Family Member Diagnosis Age At Onset Maternal Grandmother Uterine Cancer Maternal Grandmother Stroke Immunizations Vaccine Date Status Comments Influenza, injectable, quadrivalent, completed Source: Other Provider preservative free, 3 yrs or older Payers Payer name Insurance type Covered alliance party ID Authorization(s) [facility] - [id number] Medicaid Social History Type Description Quantity Date [...] BOOKED Future Order: Radiology Order Nuchal Translucency ([id number]) Ordered Future Order: Radiology Order Complete OB Ultrasound > 14 Ordered Weeks ([id number]) Date Type Problem Goal Intervention Status Start [...]
--- OUTSIDE RECORDS SUMMARY | 2017-12-10 19:29 | External Medical Summary | Continuity of Care Document ---
:1995 Author Organization [facility] Address [address] [place], [place] [id number] Phone Care Team Providers Name Role Phone [...] Health [place], Medical [place] [address], [facility] Center Raphael [place], comp preg, [place], 700 [id number], second [facility] [place], [place] tel:[phone] for suprvsn [id number], [place], [address] of normal [place]. [place], first preg, tel:[phone] [place], second [phone] [id number]. [email or web address] tel:[phone] weeks [phone] gestation of Associates Daniele Encntr for Raphael Referring In [facility]ens [facility] [place]. 700 Provider: Pearl STEVENSON, normal Medical [place] [address], first preg, Center Rap[place], second [place] [address], 700 [id number], [email or web address] [facility] weeks [place], [place] tel:[phone] gestation [id number], [place], [address] of [place]. [place], tel:+[phone] [place], [phone] [id number]. tel:[phone] Associates Daniele Jun- Raphael In Womens -2017 [place]. 700 Health [place], Medical [address], Center [place], [place], [id number], [facility] [place], tel:[phone], [address] [place]. tel:[phone] Purnima [place] Jun- Raphael In Womens -2017 [place]. 700 Health [place], Medical [address], Center Arina [place], [place], [id number], [facility] [place], tel:[phone], [address] [place]. tel:[phone] Purnima [place] Encntr for Raphael Referring In Womens [facility] [place]. 700 Provider: Pearl STEVENSON, normal Medical [place] [address], first preg, Center Raphael [place], second [place] [address], 700 [id number], [email or web address] [facility] weeks [place], [place] tel:[phone] gestation [id number], [place], [address] of [place]. [place], tel:[phone] [place], [phone] [id number]. tel:[phone] Purnima [place] Encntr for Dec-20 Raphael Referring In Womens [facility] [place]. 700 Provider: babar Nguyen [facility] [address], first preg, Center [place], first [place], 700 [id number], [email or web address] [place], Medical [place] weeks [place], [place] tel:[phone] gestation [id number], [place], [address] of [place]. [place], tel:+[phone] [place], [phone] [id number]. tel:[phone] Purnima [place] Encntr for Dec-20 [place]aud Referring In Womens Ultrasound [facility] [place]. Provider: babar Nguyen 700 [place] [address], first preg, [facility] [place], first Center , 700 [id number], [email or web address] [place], Medical [place] weeks [facility] tel:[phone] gestation [place], [place], [address] of [id number], [place], [place]. [place], tel:[phone]. [id number] tel:[phone] Purnima [place] Encntr for May-19 Raphael Referring In Womens [facility] [place]. 700 Provider: babar Nguyen [facility] [address], first preg, Center [place]hael [place], first [place] [address], 700 [id number], [email or web address] [place], Medical [place] weeks [place], [place] tel:[phone] gestation [id number], [place], [address] of [place]. [place], tel:[phone] [place], [phone] [id number]. tel:[phone] Family History Family Member Diagnosis Age At Onset Maternal Grandmother Uterine Cancer Maternal Grandmother Stroke Immunizations Vaccine Date Status Comments Influenza, injectable, quadrivalent, completed Source: Other Provider preservative free, 3 yrs or older Payers Payer name Insurance type Covered libertarian ID Authorization(s) [facility] - [id number] Medicaid Social History Type Description Quantity Date [...] BOOKED Future Order: Radiology Order Nuchal Translucency ([id number]) Ordered Future Order: Radiology Order Complete OB Ultrasound > 14 Ordered Weeks ([id number]) Date Type Problem Goal Intervention Status Start [...]
--- OUTSIDE RECORDS SUMMARY | 2017-12-10 19:29 | External Medical Summary | Continuity of Care Document ---
:1996 Author Organization [facility] Address [address] [place], [place] [id number] Phone Care Team Providers Name Role Phone [...] Purnima [place] Encntr for [facility]hael [facility] [place]. 700 Provider: babar Nguyen Medical [place] [address], first [facility], [place] Raphael [place], [place], third [place], 700 [id number], [email or web address] Daniele [facility], [place] tel:[phone] gestation [id number], [place], [address] of [place]. [place], tel:[phone] [place], [id number]. tel:[phone] Purnima [place] Encntr for Raphael Referring In [facility] [place]. 700 Provider: babar Nguyen [facility] [address], first [facility], [place], third [place] [address], 700 [id number], [email or web address] Daniele [facility], [place] tel:[phone] gestation [id number], [place], [address] of [place]. [place], tel:+[phone] [place], [id number]. tel:[phone] Purnima [place] Sep- Raphael In Womens [place]. 700 [facility], Medical [address], Center Arina [place], [place], [id number], [facility], tel:[phone], [address] [place]. tel:[phone] Purnima [place] Encntr for Apr-19 Raphael Referring In [facility] [place]. 700 Provider: Pearl STEVENSON, [facility] [address], first preg, Center [place], third [place] [address], 700 [id number], [email or web address] [facility] weeks [place], [place] tel:[phone] gestation [id number], [place], [address] of [place]. [place], tel:+[phone] [place], [id number]. tel:[phone] Purnima [place] Raphael In Women [place]. 700 Health [facility] [address], Center Ar[place], [place], [id number], [place], [place], tel:[phone], [address] [place]. tel:[phone] Purnima [place] Encntr for Raphael Referring In [facility] [place]. 700 Provider: Pearl STEVENSON [facility] [address], first preg, Center [place], third [place] [address], 700 [id number], [email or web address] [facility] weeks [place], [place] tel:[phone] gestation [id number], [place], [address] of [place]. [place], tel:[phone] [place], [id number]. tel:[phone] Purnima [place] Encntr for Raphael Referring In [facility] [place]. 700 Provider: Pearl STEVENSON, [facility] [address], first preg, Center Raphael [place], second [place] [address], 700 [id number], [email or web address] [facility] weeks [place], [place] tel:[phone] gestation [id number], [place], [address] of [place]. [place], tel:+[phone] [place], 8873549 [id number]. tel:[phone] Purnima [place] Oth infect Raphael Referring In Womens [facility] [place]. 700 Provider: Pearl STEVENSON, [facility] [address], [facility] Center Raphael [place], comp preg, [place] [address], 700 [id number], second Daniele, Medical [place] triEncntr [place], [place] tel:[phone] for suprvsn [id number], [place] [address], [address] of normal [place]. [place], first preg, tel:[phone] [place], second [phone] [id number]. [email or web address] tel:[phone] weeks [phone] gestation of Associates Daniele Encntr for Raphael Referring In Womens Ultrasound [facility] [place]. 700 Provider: Pearl STEVENSON [facility] [place] [address], first preg, Center [place], second [place] [address], 700 [id number], [facility] [place] weeks [place], [place] tel:[phone] gestation [id number], [place], [address] of [place]. [place], tel:+-[phone] [place], [phone] [id number]. tel:[phone] Purnima [place] Raphael In Womens [place]. 700 Pearl STEVENSON Medical [address], [place], [place] [address], [id number], [place], [place], tel:[phone], [address] [place]. tel:[phone] Associates Daniele Encntr for Raphael Referring In Womens [facility] [place]. 700 Provider: Pearl STEVENSON [facility] [place] [address], first preg, Center [place], second [place] [address], 700 [id number], [email or web address] Daniele, [facility] US weeks [place], [place] tel:[phone] gestation [id number], [place], [address] of [place]. [place], tel:+[phone] [place], 0001595 [id number]. tel:[phone] Associates Daniele Encntr for Raphael Referring In Womens [facility] [place]. 700 Provider: Pearl STEVENSON [facility] [place] [address], first preg, Center Raphael [place], first [place] [address], 700 [id number], [email or web address] Daniele, [facility] [place] weeks [place], [place] tel:[phone] gestation [id number], [place] [address], [address] of [place]. [place], tel:+[phone] [place], [id number]. tel:[phone] Purnima [place] Encntr for Persaud Referring In Womens Ultrasound suprvsn [place]. Provider: babar Nguyen 700 [place] [address], first preg, Medical Arina [place], [place], first Center Roly Phillips [id number], [email or web address] [place] [address], Medical [place] weeks [facility] tel:[phone] gestation [place], [place], [address] of [id number], [place], [place]. [place], tel:[phone]. [id number] tel:[phone] Purnima [place] Encntr for Raphael Referring In Womens suprvsn [place]. 700 Provider: babar Nguyen Medical [place] [address], first preg, Center Raphael [place], [place], first [place] [address], 700 [id number], [email or web address] [place], Medical [place] weeks [place], [place] tel:[phone] gestation [id number], [place], [address] of [place]. [place], tel:+-316 [place], [phone] [id number]. tel:[phone] Family History Family Member Diagnosis Age At Onset Maternal Grandmother Uterine Cancer Maternal Grandmother Stroke Immunizations Vaccine Date Status Comments Influenza, injectable, quadrivalent, completed Source: Other Provider preservative free, 3 yrs or older Payers Payer name Insurance type Covered libertarian ID Authorization(s) [facility] - [id number] Medicaid Social History Type Description Quantity Date [...] BOOKED Future Order: Radiology Order Nuchal Translucency ([id number]) Ordered Future Order: Radiology Order Complete OB Ultrasound > 14 Ordered Weeks ([id number]) Date Type Problem Goal Intervention Status Start [...]
[2017-12-10] MEDS ORDERED: SALINE FLUSH 10ml SYRINGE IV PRN (19:39)
[2017-12-10 19:42] VITALS: BMI 27.3
[2017-12-10] MEDS ORDERED: GENTAMICIN - PHARMACY CONSULT MC ONE (20:13)
[2017-12-10] MEDS: IBUPROFEN 800 MG TABLET PO PRN (20:22)
[2017-12-10] MEDS: LR 1,000 ML IV SCH (20:45)
[2017-12-10] MEDS ORDERED: GENTAMICIN 120 MG in NS 100 ML IV ONE (21:00)
[2017-12-10] MEDS: AMPICILLIN 2 GM in NS 100 ML IV SCH (21:04)
[2017-12-10] MEDS: NS FLUSH BAG 500ml IV PRN (21:32)
[2017-12-10] MEDS: LIDOCAINE 1% INJ 10 MG, POTASSIUM CHLORIDE INJ 10 MEQ in NS 100 ML IV SCH ×3 (21:46→23:54)
[2017-12-10] MEDS: CLINDAMYCIN PB 900 MG/50 ML BAG IV SCH (21:53)
[2017-12-11] MEDS: LIDOCAINE 1% INJ 10 MG, POTASSIUM CHLORIDE INJ 10 MEQ in NS 100 ML IV SCH ×3 (00:55→22:39)
[2017-12-11] MEDS: AMPICILLIN 2 GM in NS 100 ML IV SCH ×5 (03:23→20:10)
[2017-12-11] MEDS: CLINDAMYCIN PB 900 MG/50 ML BAG IV SCH ×3 (04:06→20:55)
[2017-12-11] MEDS: IBUPROFEN 800 MG TABLET PO PRN ×3 (04:06→22:31)
[2017-12-11] MEDS ORDERED: ALBUTEROL 2.5mg/3ml (0.083%) NEB AEROSOL PRN (04:21)
[2017-12-11] MEDS: LR 1,000 ML IV SCH (06:17)
[2017-12-11] MEDS ORDERED: GENTAMICIN 120 MG in NS 100 ML IV SCH (07:00)
--- NOTE | 2017-12-11 07:50 | OB/GYN Progress Note ---
OB-PP Progress Note - General General: PPD 10 s/p . She saw Dr. Lim in the office yesterday for a fever, but her temp was 99.1 there. On his exam, he reported uterine tenderness and felt like this is endometritis. He sent her home with Augmentin. She called me last PM because her temp spiked to 103 again, so I admitted her for IV antibiotics. She is formula feeding. Her milk came in, but her breasts are now soft, nontender, and not erythematous. She denies respiratory or bladder Sx. No leg pain. Her lochia is small and she continues to have low abdominal pain. - Subjective Date: 12/11/17 Nausea or Vomiting Present: No - Objective Vital Signs: Last Vital Signs Temp 101.6 F H 12/11/17 04:25 Pulse 91 12/11/17 04:25 Resp 20 12/11/17 04:25 BP 144/88 H 12/11/17 04:25 Pulse Ox 96 12/11/17 04:25 Urine Output: good General: alert and oriented Respiratory: non-labored Abdomen: fundus firm, tender Extremities: non-tender Laboratory: Laboratory Results - last 24 hr 12/10/17 12/10/17 12/10/17 20:06 20:06 20:06 WBC 10.1 RBC 4.10 Hgb 11.2 L Hct 34.7 L MCV 84.6 MCH 27.3 MCHC 32.3 RDW Std Deviation 46.7 Plt Count 223 D MPV 10.4 Immature Gran % (Auto) Not performed Neut % (Auto) Not performed Lymph % (Auto) Not performed [place] % (Auto) Not performed Eos % (Auto) Not performed Baso % (Auto) Not performed Neut # (Auto) Not performed Lymph # (Auto) Not performed [place] # (Auto) Not performed Eos # (Auto) Not performed Baso # (Auto) Not performed Abs Immat Gran (auto) Not performed Neutrophils % (Manual) 86.0 H Band Neutrophils % 3.0 Lymphocytes % (Manual) 4.0 L Monocytes % (Manual) 4.0 Metamyelocytes % 1.0 H Myelocytes % 2.0 H Neutrophils # (Manual) 8.7 H Band Neutrophils # 0.3 Lymphocytes # (Manual) 0.4 L Monocytes # (Manual) 0.4 Metamyelocytes # 0.1 Myelocytes # 0.2 RBC Morph Comment Normal Turbidity < 20 Sodium 144 Potassium 2.3 L* Chloride 107 Carbon Dioxide 25 Anion Gap 12 BUN 8.0 Creatinine 0.8 GFR Calculation 91 BUN/Creatinine Ratio 10 Glucose 106 Calculated Osmolality 275 Calcium 8.0 L Magnesium 1.9 Total Bilirubin 0.70 Icterus Index < 2 AST 22 ALT 21 Alkaline Phosphatase 125 Total Protein 6.7 Albumin 3.7 Globulin 3.0 Albumin/Globulin Ratio 1.2 Specimen Hemolysis < 15 Ur Collection Type Urine Color Urine Clarity Urine pH Ur Specific [place] Urine Protein Urine Glucose (UA) Urine Ketones Urine Occult Blood Urine Nitrate Urine Bilirubin Urine Urobilinogen Ur Leukocyte Esterase Urine RBC Urine WBC Urine Bacteria Ur Culture Indicated? 12/10/17 12/11/17 23:53 05:21 WBC RBC Hgb Hct MCV MCH MCHC RDW Std Deviation Plt Count MPV Immature Gran % (Auto) Neut % (Auto) Lymph % (Auto) [place] % (Auto) Eos % (Auto) Baso % (Auto) Neut # (Auto) Lymph # (Auto) [place] # (Auto) Eos # (Auto) Baso # (Auto) Abs Immat Gran (auto) Neutrophils % (Manual) Band Neutrophils % Lymphocytes % (Manual) Monocytes % (Manual) Metamyelocytes % Myelocytes % Neutrophils # (Manual) Band Neutrophils # Lymphocytes # (Manual) Monocytes # (Manual) Metamyelocytes # Myelocytes # RBC Morph Comment Turbidity < 20 Sodium 145 Potassium 2.5 L* Chloride 112 H Carbon Dioxide 22 Anion Gap 11 BUN 6.0 L Creatinine 0.6 L D GFR Calculation 126 BUN/Creatinine Ratio 10 Glucose 131 H Calculated Osmolality 279 Calcium 7.6 L Magnesium Total Bilirubin Icterus Index < 2 AST ALT Alkaline Phosphatase Total Protein Albumin Globulin Albumin/Globulin Ratio Specimen Hemolysis < 15 Ur Collection Type Urine, void-cc/notcc Urine Color Yellow Urine Clarity Clear Urine pH 6.5 Ur Specific [place] <=1.005 L Urine Protein Negative Urine Glucose (UA) Negative Urine Ketones Negative Urine Occult Blood Trace-intact Urine Nitrate Negative Urine Bilirubin Negative Urine Urobilinogen 0.2 Ur Leukocyte Esterase 1+ A Urine RBC 0-1 Urine WBC 3-5 Urine Bacteria None seen Ur Culture Indicated? Cult not indicated - Assessment (1) Status post normal vaginal delivery Status: Acute (2) endometritis Comment: Continue amp, gent, clinda IV until 24 hours afebrile. Status: Acute (3) Hypokalemia Comment: She received 4 bags of KCl last PM, which only raised her K+ to 2.5. She is getting another 4 bags. I consulted the hospitalist to manage this further. Status: Acute
[2017-12-11] MEDS: POTASSIUM CHLORIDE IV SCH ×3 (08:36→11:06)
[2017-12-11] MEDS: LIDOCAINE IV SCH ×3 (08:36→11:06)
[2017-12-11] MEDS: D5W IV SCH ×3 (08:36→11:06)
--- NOTE | 2017-12-11 09:45 | Consult Note ---
Consult Information - Data of Consult Consult date: 12/11/17 Requesting Physician: Everett Lim MD Primary Care Provider: Filiberto Mackey MD - Consult Narrative Reason for consult: Hypokalemia History of present illness: Ana Ruby is a 22 y/o patient seen in consultation from Dr. Sierra for hypokalemia. She had an uncomplicated vaginal delivery on 12/01/17. Since then she has had pedal edema. She is not . She had been doing well at home until 2 nights ago, when she started chilling and shivering and running a low-grade fever. She took a couple ibuprofen, and contacted Dr. Lim on 12/10/17 and was started on Augmentin. Her fevers persisted and she had low back pain, lower abdominal pain, headaches. She had 1 episode of diarrhea 2 days ago. She has been eating/drinking well and denies nausea/ vomiting. She denies weakness/dizziness. She sometimes feels a little short of breath when her fever spikes but denies chest pain/palpitations. No recent URI sx. She was admitted by Dr. Sierra in the evening of 12/10/17 b/c her fever spiked to 103. She was started on triple abx for endometritis. On admission, her K was low at 2.3 and after K bolus it only came up to 2.5. She's on LR @ 125 mL/hr as well. Mg was normal at 1.9. Past Medical History Medical History: Medical History (Last Updated 12/11/17 @ 07:54 by Kelly Sierra MD) Anemia history of anemia Chlamydia 2017 Medical History Updates: Iron deficiency anemia Surgical History: Denied by patient. Family History Updates: Mother: Healthy, born in 1972. Father: HTN, born in 1961. Has a heart murmur. Brother, age 16: Fluid around the heart - sees a specialist in [place]. Brother: Healthy. MGM: Stroke, uterine cancer, DM. MGF: prostate cancer. PGM: COPD. PGF: in an accident in 1973 Family History: As Above - Social History Smoking status: Former smoker Substance use type: does not use Alcohol intake frequency: does not drink Review of Systems All systems PM: 10-point ROS was reviewed, no additional remarkable complaints except - Constitutional Constitutional: Present: chills, fever(s), headache(s) - EENMT Eyes: Absent: change in vision Balance: Absent: vertigo Nose: Absent: obstruction Mouth/Throat: Absent: sore throat, changes in swallowing - Cardiovascular Cardiovascular: Absent: chest pain, heart murmur Vascular: Present: pedal edema (since delivery) - Respiratory Respiratory: Present: dyspnea (assoc. with fever). Absent: cough - Gastrointestinal Gastrointestinal: Present: abdominal pain, diarrhea (2 days ago, 1 episode). Absent: constipation, nausea, vomiting - Genitourinary Genitourinary: Present: abnormal vaginal bleeding (had stopped bleeding but it restarted after admission). Absent: dysuria Menstruation: other () - Musculoskeletal Musculoskeletal: Present: back pain (lower) - Integumentary/Breasts Integumentary: Absent: rash - Neurological Neurological: Absent: abnormal gait, dizziness, focal weakness, weakness - Psychiatric Psychiatric: Absent: anxiety - Endocrine Endocrine: Absent: palpitations - Hematologic/Lymphatic Hematologic/Lymphatic: Absent: easy bruising - Allergic/Immunologic Allergic/Immunologic: Absent: seasonal rhinorrhea Medications Allergies Allergy/AdvReac Type Severity Reaction Status Date / Time No Known Allergies Allergy Verified 12/10/17 20:09 Exam Vital Signs: Temperature 101.6 F H 12/11/17 04:25 Pulse Rate 91 12/11/17 04:25 Respiratory Rate 20 12/11/17 04:25 Blood Pressure 144/88 H 12/11/17 04:25 Pulse Oximetry 96 12/11/17 04:25 Height/Weight/BMI: Height 1.65 m Weight 74.6 kg Body Mass Index 27.3 - Constitutional Present: no acute distress, well nourished, well developed - Routine HEENT Exam Head: Present: normocephalic Eye: Present: PERRL. Absent: conjunctival icterus, scleral injection ENT: Present: mucous membranes moist, oropharynx clear - Routine Neck Exam Present: supple, lymphadenopathy (mild anterior cervical lymphadenopathy) - Routine Respiratory Exam Present: CTA bilaterally - Routine Cardiovascular Exam Present: RRR, S1, S2, murmur (short harsh 2/6 systolic) - Routine Abdominal Exam Present: soft, normoactive bowel sounds, tenderness (minimal tenderness over fundus), non distended - Routine Extremities Exam Present: edema (1+ B/L pedal) - Routine Back/Spine/Pelvis Exam Back/Spine: Present: full ROM - Routine Skin Exam Present: intact, dry, warm - Routine Neurological Exam Present: alert, oriented X3, CN II-XII intact, moving all extremities, vision grossly intact, hearing grossly intact, normal speech. Absent: sensory deficit , motor deficit, altered mental status, facial asymmetry - Routine Psychiatric Exam Present: normal affect, normal thought process, cooperative Results - Labs CBC & Chem 7: 12/10/17 20:06 12/11/17 15:12 Assessment and Plan (1) endometritis Problem details: Continue amp, gent, clinda IV until 24 hours afebrile. Current visit: Yes Status: Acute (2) Hypokalemia Problem details: She received 4 bags of KCl last PM, which only raised her K+ to 2.5. She is getting another 4 bags. I consulted the hospitalist to manage this further. Current visit: Yes Status: Acute Assessment and Plan: Assessment Hypokalemia Hypocalcemia endometritis GARRICK S/P vaginal delivery 12/01/17, not Heart murmur - new diagnosis Plan Agree with IV bolus of K. Will recheck BMP this afternoon. Mg stable as of yesterday am. No significant GI losses to explain hypokalemia. She had mild hypokalemia at 3.4 in September,. Recheck BMP this afternoon. DC high-volume IVF - hemodynamically stable. She had LR @ 125 mL/hr all night. NS started at 25 ml/hr to dilute K bolus. Abx (clinda/gent/amp) per attending. D/W Dr. Sierra, Dr. Gross, RN. DVT Prophylaxis: SCD's Resuscitation Status: Full Code - Physician Narrative Physician: Chasidy Gross MD Narrative: Date: 12/11/17 Time: 2114 I have independently evaluated and examined this patient. I reviewed the chart, the patient's history, and the [employer] TECHNICIAN/PA's documented findings as above. We discussed and formulated the assessment and plan as above with additions as below: Ana was seen much earlier today reporting normal diet, no diuretic use, no nausea or vomiting, and only an isolated episode of diarrhea earlier today in addition to that previously described. She denied muscle cramping but has had increased palpitations since delivering. She has been voiding frequently since delivery but remains edematous. She is not aware of family history of potassium or other electrolyte abnormalities. She was treated with potassium tablets in September of this year when potassium was 3.4; at that time she had been evaluated in the emergency room and was told she was dehydrated after having a URI. NAD, alert Respirations nonlabored, good airflow, breath sounds clear Regular rhythm, S1-S2 +2 edema bilateral lower extremities Potassium as described above; urine pH 6.5 with prior urine pHs of 6 and 7 when assessed on 2 occasions earlier this year. Bicarbonate 25 yesterday evening and 22 this morning and this afternoon. Urine potassium 9.5 mEq per liter-consistent with low urinary potassium concentration; urine potassium/creatinine ratio also appropriately low given hypokalemia Continue replacement therapy. Patient denies medication use that would predispose to hypokalemia and does not appear to have excess urinary loss of potassium at present. Check TSH, may require evaluation for RTA and hyperaldosteronism if has recurring hypokalemia after adequate replacement. Discussed with Dr. Sierra earlier today. Hospital Course Summary Disclaimer: The visit summary below is not to be considered part of the above Progress Note. Hospital Course: 12/11/17 Agree with IV bolus of K. Will recheck BMP this afternoon. Mg stable as of yesterday am. No significant GI losses to explain hypokalemia. She had mild hypokalemia at 3.4 in September,. Recheck BMP this afternoon. DC high-volume IVF - hemodynamically stable. She had LR @ 125 mL/hr all night. NS started at 25 ml/hr to dilute K bolus. Abx (clinda/gent/amp) per attending.
--- NOTE | 2017-12-11 13:34 | Pharmacy Consult-Antibiotics ---
Pharmacy Consult-Gentamicin - Laboratory Information Gentamicin WBC 10.1 T/MM3 (4.5-11.0) 12/10/17 20:06 BUN 6.0 MG/DL (7-17) L 12/11/17 05:21 Creatinine 0.6 mg/dL (0.7-1.2) L D 12/11/17 05:21 - Consult Information GENTAMICIN CONSULT: 22 y.o. Female with fever 10 days . Gentamicin, Ampicillin and Clindamycin started empirically. Current Renal Fx: SCr = 0.6 mg/dl. Gentamicin 120 mg IV q8hrs. Will continue to monitor and make adjustments accordingly. Thank you, Herlinda Disla [facility]
[2017-12-11] MEDS: GENTAMICIN 120 MG in NS 100 ML IV SCH ×2 (14:43→22:32)
[2017-12-11] MEDS ORDERED: LIDOCAINE 1% 2ml INJ 10 MG, POTASSIUM CHLORIDE INJ 10 MEQ in NS 100 ML IV SCH (18:45)
[2017-12-11] MEDS ORDERED: ACETAMINOPHEN 325 MG TABLET PO PRN (19:42)
[2017-12-11] MEDS: NS FLUSH BAG 500ml IV PRN (19:56)
[2017-12-12] MEDS: AMPICILLIN 2 GM in NS 100 ML IV SCH ×2 (03:16→08:22)
[2017-12-12 03:25] VITALS: RESP 18
[2017-12-12] MEDS: CLINDAMYCIN PB 900 MG/50 ML BAG IV SCH (04:01)
[2017-12-12] MEDS: GENTAMICIN 120 MG in NS 100 ML IV SCH (06:18)
[2017-12-12 07:49] VITALS: BP 146/94; PULSE 62; TEMP 96.6; O2SAT 98
--- NOTE | 2017-12-12 10:45 | OB/GYN Progress Note ---
OB-PP Progress Note - General General: PPD 11. She is feeling much better today and desires dismissal. - Subjective Date: 12/12/17 Lochia: Minimal Pain: controlled Voiding: voiding - Objective Vital Signs: Last Vital Signs Temp 96.6 F L 12/12/17 07:44 Pulse 62 12/12/17 07:44 Resp 18 12/12/17 07:44 BP 146/94 H 12/12/17 07:44 Pulse Ox 98 12/12/17 07:44 She has been afebrile for more than 24 hours. Urine Output: good General: alert and oriented Abdomen: fundus firm, non-tender Extremities: non-tender Laboratory: Laboratory Results - last 24 hr 12/11/17 12/11/17 12/11/17 15:12 17:10 17:10 WBC RBC Hgb Hct MCV MCH MCHC RDW Std Deviation Plt Count MPV Immature Gran % (Auto) Neut % (Auto) Lymph % (Auto) [place] % (Auto) Eos % (Auto) Baso % (Auto) Neut # (Auto) Lymph # (Auto) [place] # (Auto) Eos # (Auto) Baso # (Auto) Abs Immat Gran (auto) Turbidity < 20 Sodium 147 H Potassium 3.0 L D Chloride 113 H Carbon Dioxide 22 Anion Gap 12 BUN 6.0 L Creatinine 0.7 GFR Calculation 106 BUN/Creatinine Ratio 9 Glucose 79 Calculated Osmolality 279 Calcium 7.6 L Phosphorus Magnesium Icterus Index < 2 Albumin Specimen Hemolysis < 15 Ur Random Creatinine 54.9 Ur Random Sodium Ur Random Potassium 9.5 12/11/17 12/12/17 12/12/17 17:10 04:23 04:23 WBC 7.3 RBC 3.58 L Hgb 9.6 L D Hct 30.8 L D MCV 86.0 MCH 26.8 MCHC 31.2 RDW Std Deviation 48.1 Plt Count 200 MPV 11.3 Immature Gran % (Auto) 0.1 Neut % (Auto) 74.6 H Lymph % (Auto) 15.6 L [place] % (Auto) 7.0 Eos % (Auto) 2.6 Baso % (Auto) 0.1 Neut # (Auto) 5.4 Lymph # (Auto) 1.1 [place] # (Auto) 0.5 Eos # (Auto) 0.2 Baso # (Auto) 0.0 Abs Immat Gran (auto) 0.01 Turbidity < 20 Sodium 146 Potassium 2.8 L* Chloride 112 H Carbon Dioxide 23 Anion Gap 11 BUN 9.0 D Creatinine 0.7 GFR Calculation 106 BUN/Creatinine Ratio 13 Glucose 81 Calculated Osmolality 279 Calcium 8.1 L Phosphorus 4.2 Magnesium 1.6 Icterus Index < 2 Albumin 2.9 L Specimen Hemolysis < 15 Ur Random Creatinine Ur Random Sodium 136 H Ur Random Potassium - Assessment (1) Status post normal vaginal delivery Status: Acute (2) endometritis Comment: She already has a script at home for Augmentin that she will take BID until it is finished. Follow up with Dr. Lim on Wednesday. Status: Acute (3) Hypokalemia Comment: She continues to be hypokalemic. She has been switched to PO replacement. I appreciate the hospitalist consult on this. Status: Acute - Assessment Assessment: Anemia (I suspected this is partially dilutional. Will start iron. ) - Plan Plan: discharge home (If ok with the hospitalist.)
[2017-12-12] MEDS ORDERED: IRON POLYSACCHARIDE COMPLEX 150 MG CAPSULE PO SCH (11:00)
--- NOTE | 2017-12-12 14:45 | Progress Note ---
- Date 12/12/17 Subjective: She reports that she feels well today. She denied palpitations or muscle cramps. She has had diarrhea several times today after one episode yesterday and one episode 2 days ago (the latter being the only reported episode of diarrhea prior to hospitalization when hypokalemia was recognized). She denied dyspnea or fevers and feels significantly improved overall. She is anxious to discharge home. Her aunt is present and asked if no potassium runs in families indicating that she has a low potassium and takes a potassium pill every day. Objective Vital signs: Temperature 96.6 F L 12/12/17 07:44 Pulse Rate 62 12/12/17 07:44 Respiratory Rate 18 12/12/17 07:44 Blood Pressure 146/94 H 12/12/17 07:44 Pulse Oximetry 98 12/12/17 07:44 NAD, alert, fluent speech Respirations nonlabored, good airflow, breath sounds clear Regular rhythm, S1-S2-no tachycardia or palpitations noted Abdomen soft, bowel sounds present Edema has resolved in the lower extremities Height/Weight/BMI: Height 1.65 m Weight 73.9 kg Body Mass Index 27.3 Results - Labs CBC & Chem 7: 12/12/17 04:23 12/12/17 04:23 Labs: Magnesium 1.6, phosphorus 4.2 Urine Cr-54.9, Na-136, K-9.5 (all on random urine sample, not time specimen) Microbiology Results: Microbiology 12/11/17 09:46 Peripheral/Iv Start Blood Culture - Preliminary No Growth After 1 Day 12/11/17 09:46 Peripheral/Iv Start Blood Culture - Preliminary No Growth After 1 Day Assessment and Plan (1) endometritis Problem details: She already has a script at home for Augmentin that she will take BID until it is finished. Follow up with Dr. Lim on Wednesday. Current visit: Yes Status: Acute (2) Hypokalemia Problem details: She continues to be hypokalemic. She has been switched to PO replacement. I appreciate the hospitalist consult on this. Current visit: Yes Status: Acute Assessment and Plan: Assessment Hypokalemia Hypocalcemia endometritis GARRICK S/P vaginal delivery 12/01/17, not Heart murmur - new diagnosis Plan Ana received 110 mEq of potassium either IV or po on 12/11 with minimal change in potassium from 2.5 yesterday morning to 2.8 today although potassium transiently increased to 3.0 yesterday evening. She is anxious to discharge home this morning and has been cleared for discharge by [employer]X INFORMATION ARCHITECT. She received 120 mEq of potassium orally through the course of the morning and will be discharged on 40 mEq KCl 3 times a day to be continued as an outpatient. Blood pressures have been modestly elevated with systolics typically 130-146 and diastolics often in the mid 80s-90s. Patient is referred back to Dr. 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 Will need to have electrolytes reevaluated in 3-[address] Sierra this morning. Resuscitation Status: Full Code - Physician Narrative Narrative: Date: 12/12/17 Time: 1442 Hospital Course Summary Disclaimer: The visit summary below is not to be considered part of the above Progress Note. Hospital Course: 12/11/17 Agree with IV bolus of K. Will recheck BMP this afternoon. Mg stable as of yesterday am. No significant GI losses to explain hypokalemia. She had mild hypokalemia at 3.4 in September,. Recheck BMP this afternoon. DC high-volume IVF - hemodynamically stable. She had LR @ 125 mL/hr all night. NS started at 25 ml/hr to dilute K bolus. Abx (clinda/gent/amp) per attending.
== END 2017-12-12 12:24 | disposition home or self-care (01) ==
LOC: SRG
PROVIDERS: ADMIT Obstetrics & Gynecology; ATTEND Obstetrics & Gynecology